=== PATIENT | male | born 1995 | race Caucasian/White ===

== ENCOUNTER → 2019-01-29 | Emergency (ER) | payer OTHER ==
[~2019-01-29] MED LIST: FLUORESCEIN SOD 1 MG 1 EA STRP OU ONE; PROPARACAINE 0.5% OP 15ML BTL OU ONE; RANI-54 PO; TOBRAMYCIN/DEX OP SUSP 2.5 ML OU ONE
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
[2019-01-29 01:56] VITALS: BP 112/70
== END ==
LOC: EDUNIT# 01:50 → ER 02:11
DX: T26.32XA Burns of other specified parts of left eye and adnexa, initial encounter (principal); T26.31XA Burns of other specified parts of right eye and adnexa, initial encounter
CPT/HCPCS: 99283